=== PATIENT | male | born 1965 | race Caucasian/White ===

== ENCOUNTER 2022-10-08 14:45 | Emergency (ER) | payer OTHER ==
[2022-10-08 14:58] VITALS: RESP 18; BMI 34.1
[2022-10-08] MEDS ORDERED: SODIUM CHLORIDE 0.9% 500 ML INFUS.BAG IV ONE (15:11)
[2022-10-08 16:04] LABS: BASO % 0.6 % (0-2.0); EOS % 1.7 % (0-4.5); HEMATOCRIT 40.9 % (35.4-49); HEMOGLOBIN 14.1 GM/dL (11.7-16.9); LYMPH % 18.5 % (8-40); MCHC 34.6 g/dl (32.0-35.9); MEAN CELL VOLUME 98.2 fl (80-96); MEAN PLT VOLUME 7.1 fl (7.5-11.1); MONO % 7.5 % (3.8-10.2); NEUT % 71.7 % (42.8-82.8); PLATELET COUNT 205 10^3/uL (134-434); RBC 4.16 M/mm3 (4.00-5.60)
[2022-10-08 16:24] LABS: CALCIUM 9.2 mg/dL (8.5-10.1)
[2022-10-08 16:25] LABS: ALBUMIN 4.3 g/dl (3.4-5.0); BLOOD UREA NITROGEN 19.9 mg/dL (7-18)
[2022-10-08 16:28] LABS: CREATININE 1.1 mg/dL (0.55-1.3)
[2022-10-08 16:29] LABS: BILIRUBIN,TOTAL 0.4 mg/dL (0.2-1)
[2022-10-08 18:19] VITALS: BP 128/73; PULSE 91; TEMP 98.7
== END 2022-10-08 18:35 | disposition home or self-care (01) ==
LOC: JER 14:45
DX: F41.9 Anxiety disorder, unspecified (principal)
CPT/HCPCS: 36415; 71045-TC-FY; 80053; 85025; 93005; 93010; 99285-25

== ENCOUNTER 2022-10-10 01:59 | Emergency (ER) | payer OTHER ==
[2022-10-10 02:05] VITALS: BP 142/86; PULSE 85; RESP 17; TEMP 97.6; BMI 34.1
[2022-10-10 03:37] LABS: BASO % 0.4 % (0-2.0); EOS % 1.2 % (0-4.5); HEMATOCRIT 39.1 % (35.4-49); HEMOGLOBIN 13.9 GM/dL (11.7-16.9); LYMPH % 14.2 % (8-40); MCHC 35.6 g/dl (32.0-35.9); MEAN CELL VOLUME 98.4 fl (80-96); MEAN PLT VOLUME 7.5 fl (7.5-11.1); MONO % 8.5 % (3.8-10.2); NEUT % 75.7 % (42.8-82.8); PLATELET COUNT 233 10^3/uL (134-434); RBC 3.97 M/mm3 (4.00-5.60); RDW 13.8 % (11.9-15.9); WHITE BLOOD COUNT 9.5 K/mm3 (4.0-10.0)
[2022-10-10 03:57] LABS: BLOOD UREA NITROGEN 19.8 mg/dL (7-18); CALCIUM 8.9 mg/dL (8.5-10.1)
[2022-10-10 03:58] LABS: ALBUMIN 4.2 g/dl (3.4-5.0); MAGNESIUM 2.1 mg/dL (1.8-2.4)
[2022-10-10 04:01] LABS: CREATININE 1.2 mg/dL (0.55-1.3)
[2022-10-10 04:02] LABS: BILIRUBIN,TOTAL 0.9 mg/dL (0.2-1); TOT PROT 8.1 g/dl (6.4-8.2)
[2022-10-10] MEDS ORDERED: BUPRENORPHINE/NALOXONE 8 MG/2 MG FILM PACKET SL ONE (05:00)
[2022-10-10 05:01] LABS: OPIATES, URI NEGATIVE (NEGATIVE)
[2022-10-10 05:02] LABS: COCAINE, UR NEGATIVE (NEGATIVE); METHADONE, UR NEGATIVE (NEGATIVE); PHENCYCLIDINE,URINE NEGATIVE (NEGATIVE); URINE AMPHETAMINES NEGATIVE (NEGATIVE); URINE BARBITURATES NEGATIVE (NEGATIVE); URINE BENZODIAZEPINES NEGATIVE (NEGATIVE)
[2022-10-10] MEDS ORDERED: BUPRENORPHINE/NALOXONE 8 MG/2 MG FILM PACKET ONE (05:02)
== END 2022-10-10 05:26 | disposition home or self-care (01) ==
LOC: JER 01:59
DX: R00.2 Palpitations (principal)
CPT/HCPCS: 36415; 71046-TC-FY; 80053; 80307; 82550; 82553; 83735; 84443; 84484; 85025; 93005; 93010; 99285-25

== ENCOUNTER 2025-01-23 17:11 | Emergency (ER) | payer OTHER ==
[2025-01-23 17:22] VITALS: TEMP 97.9; BMI 37.8
[2025-01-23] MEDS ORDERED: morphine SULFATE 4 MG/ML VIAL ONE ×2 (18:49→21:19)
[2025-01-23 18:53] LABS: ABSOLUTE IMMATURE GRANULOCYTES 0.04 x10^3/uL (0.0-0.031); BASOPHILS # 0.05 x10^3/uL (0.01-0.08); EOSINOPHIL % 0.5 % (0.8-7.0); EOSINOPHILS # 0.07 x10^3/uL (0.04-0.54); HEMATOCRIT 46.6 % (40.1-51.0); HEMOGLOBIN 15.7 g/dL (13.7-17.5); MCHC 33.7 g/dl (32.3-36.5); MEAN PLT VOLUME 9.5 fl (9.4-12.4); MONOCYTE # 1.17 x10^3/uL (0.30-0.82); MONOCYTE % 8.5 % (5.3-12.2); PLATELET COUNT 197 x10^3/uL (163-337); RDW 12.4 % (12.2-16.1)
[2025-01-23] MEDS ORDERED: DIPHTH,PERTUSS(ACELL),TET 0.5 ML DISP.SYRIN IM ONE (18:56)
[2025-01-23 19:00] LABS: POTASSIUM 4.2 mmol/L (3.5-5.1)
[2025-01-23 19:02] LABS: ALBUMIN 4.8 g/dl (3.4-5.0); BLOOD UREA NITROGEN 20.9 mg/dL (7-18)
[2025-01-23] MEDS: DIPHTH,PERTUSS(ACELL),TET 0.5 ML DISP.SYRIN IM ONE (19:02)
[2025-01-23] MEDS: SODIUM CHLORIDE 1,000 ML IV STA ×2 (19:02→20:07)
[2025-01-23] MEDS: morphine CARPU-JECT 4 MG/1 ML DISP.SYRIN IVPUSH ONE ×2 (19:04→21:28)
[2025-01-23 19:05] LABS: CREATININE 1.3 mg/dL (0.55-1.3)
[2025-01-23 19:07] LABS: BILIRUBIN,TOTAL 0.9 mg/dL (0.2-1); TOT PROT 8.4 g/dl (6.4-8.2)
[2025-01-23 19:08] LABS: INR 1.11 (0.83-1.09); PROTHROMBIN TIME (PATIENT) 12.2 SEC (9.7-13.0)
[2025-01-23 19:46] LABS: EPI CELLS 14 /uL (0-25.1); HYALINE CASTS 1 /uL (0-3.1); URINE APPEARANCE CLEAR; URINE BACTERIA 6 /uL (0-1359); URINE BILIRUBIN NEGATIVE (NEGATIVE); URINE COLOR YELLOW; URINE GLUCOSE (UA) NEGATIVE (NEGATIVE); URINE KETONE 1+ (NEGATIVE); URINE LEUK ESTERASE NEGATIVE (NEGATIVE); URINE NITRITE NEGATIVE (NEGATIVE); URINE PROTEIN 2+ (NEGATIVE); URINE RBC 51 /uL (0-23.9); URINE WBC 7 /uL (0-25.8)
[2025-01-23] MEDS ORDERED: ACETAMINOPHEN INJECTION 100 ML ONE (21:20)
[2025-01-23] MEDS: ACETAMINOPHEN 1000 MG/100 ML BAG IVPB ONE (21:28)
[2025-01-23] MEDS ORDERED: LIDOCAINE 5% TOPICAL PATCH ONE (22:21)
[2025-01-23] MEDS ORDERED: KETOROLAC TROMETHAMINE 30 MG/1 ML VIAL ONE (22:21)
[2025-01-23] MEDS: LIDOCAINE 5% TOPICAL PATCH TP ONE (22:26)
[2025-01-23] MEDS: KETOROLAC TROMETHAMINE 30 MG/1 ML VIAL IVPUSH ONE (22:26)
[2025-01-23 22:57] VITALS: BP 135/87; PULSE 92; RESP 16
[2025-01-23] MEDS: LIDOCAINE PATCH REMOVAL MC SCH (23:29)
== END 2025-01-23 23:57 | disposition home or self-care (01) ==
LOC: JERFT 17:11 → JER 17:11
PROC: 3E033NZ Introduction of Analgesics, Hypnotics, Sedatives into Peripheral Vein, Percutaneous Approach (ICD-10-PCS; principal; 2025-01-23)
PROC: 3E033GC Introduction of Other Therapeutic Substance into Peripheral Vein, Percutaneous Approach (ICD-10-PCS; 2025-01-23)
PROC: 3E033NZ Introduction of Analgesics, Hypnotics, Sedatives into Peripheral Vein, Percutaneous Approach (ICD-10-PCS; 2025-01-23)
PROC: 3E033NZ Introduction of Analgesics, Hypnotics, Sedatives into Peripheral Vein, Percutaneous Approach (ICD-10-PCS; 2025-01-23)
PROC: 3E0337Z Introduction of Electrolytic and Water Balance Substance into Peripheral Vein, Percutaneous Approach (ICD-10-PCS; 2025-01-23)
PROC: 3E0337Z Introduction of Electrolytic and Water Balance Substance into Peripheral Vein, Percutaneous Approach (ICD-10-PCS; 2025-01-23)
PROC: 3E0234Z Introduction of Serum, Toxoid and Vaccine into Muscle, Percutaneous Approach (ICD-10-PCS; 2025-01-23)
DX: S30.1XXA Contusion of abdominal wall, initial encounter (principal); Z23 Encounter for immunization; Y04.0XXA Assault by unarmed brawl or fight, initial encounter
CPT/HCPCS: 36415; 70450-TC; 71260-TC; 72125-TC; 73140-TC-LT-FY; 74177-TC; 76604; 76705-TC; 80053; 81003; 83690; 85025; 85610; 90471; 90715; 93005; 93010; 93308; 96361; 96374; 96375; 96376; 99285-25; Q9967